=== PATIENT | male | born 1945 | race Caucasian/White ===

== ENCOUNTER → 2016-04-03 | Outpatient (CLI) | payer OTHER ==
[2016-04-03 10:40] LABS: BASOPHILS # (AUTO) 0.01 10*3/UL; BASOPHILS % (AUTO) 0.1 % (0-1); EOSINOPHILS % (AUTO) 3.4 % (0-8); HEMATOCRIT 39.2 % (42.0-52.0); HEMOGLOBIN 12.1 g/dL (14.0-18.0); IMM GRAN % (AUTO) 0.1 % (0-5); IMM GRAN# (AUTO) 0.01 10*3/UL; LYMPHOCYTES # (AUTO) 2.01 10*3/uL; LYMPHOCYTES % (AUTO) 27.4 % (10-50); MEAN CORPUSCULAR HEMOGLOBIN 31.3 PG (27-31); MEAN CORPUSCULAR HGB CONC 30.9 g/dL (33-37); MEAN PLATELET VOLUME 9.8 FL (7.4-12.2); MONOCYTES # (AUTO) 0.66 10*3/UL (0.3-0.8); NEUTROPHILS # (AUTO) 4.39 10*3/UL; RDW COEFFICIENT OF VARIATION 13.7 % (11.5-14.5); RED BLOOD COUNT 3.87 10^6/uL (4.70-6.10); WHITE BLOOD COUNT 7.33 10^3/uL (4.8-10.8)
[2016-04-03 10:45] LABS: PLATELET MORPHOLOGY COMMENT NORMAL MORPHOLOGY (NORM)
[2016-04-03 10:58] LABS: ASPARTATE AMINO TRANSFERASE 16 IU/L (21-57); BILIRUBIN,TOTAL 0.8 mg/dL (0.3-1.2); BLOOD UREA NITROGEN 10 mg/dL (7-22); CALCIUM 9.2 mg/dL (8.7-10.7); CHLORIDE 94 meq/L (98-112); CREATININE 0.8 mg/dL (0.70-1.50); EST GLOMERULAR FILTRATION > 60 (>60 ml/min/1.73m(2)); GLUCOSE 111 mg/dL (78-110); POTASSIUM 4.2 meq/L (3.8-5.2); SODIUM 138 meq/L (135-145); TOTAL PROTEIN 6.9 g/dL (6.1-8.0)
== END ==
LOC: MOB LAB 09:52
PROVIDERS: ATTEND Internal Medicine
DX: I89.0 Lymphedema, not elsewhere classified (principal); J44.9 Chronic obstructive pulmonary disease, unspecified; K59.09 Other constipation; F51.04 Psychophysiologic insomnia; Z86.79 Personal history of other diseases of the circulatory system; Z87.898 Personal history of other specified conditions; F17.210 Nicotine dependence, cigarettes, uncomplicated
CPT/HCPCS: 36415; 80053; 85025; 99214; G0463

== ENCOUNTER → 2016-07-04 | Outpatient (CLI) | payer OTHER ==
[2016-07-04 10:51] LABS: BASOPHILS # (AUTO) 0.01 10*3/UL; BASOPHILS % (AUTO) 0.1 % (0-1); EOSINOPHILS # (AUTO) 0.22 10*3/UL; EOSINOPHILS % (AUTO) 2.7 % (0-8); HEMATOCRIT 39.7 % (42.0-52.0); LYMPHOCYTES # (AUTO) 2.11 10*3/uL; MEAN CORPUSCULAR HEMOGLOBIN 31.3 PG (27-31); MEAN CORPUSCULAR HGB CONC 30.2 g/dL (33-37); MEAN CORPUSCULAR VOLUME 103.4 FL (80-90); MEAN PLATELET VOLUME 9.7 FL (7.4-12.2); MONOCYTES # (AUTO) 0.61 10*3/UL (0.3-0.8); MONOCYTES % (AUTO) 7.4 % (5-15); NEUTROPHILS # (AUTO) 5.32 10*3/UL; NEUTROPHILS % (AUTO) 64.2 % (50-80); RED BLOOD COUNT 3.84 10^6/uL (4.70-6.10)
[2016-07-04 10:52] LABS: PLATELET MORPHOLOGY COMMENT NORMAL MORPHOLOGY (NORM); RBC MORPHOLOGY COMMENT NORMAL MORPHOLOGY (NORM); WBC MORPHOLOGY COMMENT NORMAL MORPHOLOGY (NORM)
[2016-07-04 11:10] LABS: BLOOD UREA NITROGEN 11 mg/dL (7-22); BUN/CREATININE RATIO 15.71 (6-20); CALCIUM 9.3 mg/dL (8.7-10.7); EST GLOMERULAR FILTRATION > 60 (>60 ml/min/1.73m(2))
[2016-07-04 12:52] LABS: FREE T4 (FREE THYROXINE) 1.05 ng/dL (0.93-1.71)
== END ==
LOC: MOB LAB 09:48
PROVIDERS: ATTEND Internal Medicine
DX: I10 Essential (primary) hypertension (principal); R71.8 Other abnormality of red blood cells; E03.4 Atrophy of thyroid (acquired)
CPT/HCPCS: 36415; 80048; 82607; 82746; 84439; 84443; 85025